=== PATIENT | female | born 1955 | race Caucasian/White ===

== ENCOUNTER → 2018-05-23 | Outpatient (CLI) | payer BC ==
[2018-05-23] MEDS: REGADENOSON 0.4 MG/5 ML DISP.SYRIN. IV (11:00)
== END | disposition home or self-care (01) ==
LOC: NM 08:48
DX: R07.9 Chest pain, unspecified (principal); E78.5 Hyperlipidemia, unspecified; E78.00 Pure hypercholesterolemia, unspecified; J44.9 Chronic obstructive pulmonary disease, unspecified; E11.9 Type 2 diabetes mellitus without complications; I10 Essential (primary) hypertension; Z90.710 Acquired absence of both cervix and uterus
CPT/HCPCS: 78452; 93017; 96374; 96375; 96376; A9500; J2785

== ENCOUNTER → 2018-06-11 | Outpatient (CLI) | payer BC ==
[2014-10-28 10:18] VITALS: BP 129/78
[~2018-06-11] MED LIST: CEPH500C PO; FLUO20CA8 PO; GABA-586 PO; HYDR-971 PO; SIMV10TA3 PO; SITA1TAB11 PO; TIZA4TAB PO
--- NOTE | 2018-06-12 10:06 | RAD ---
DATE: 06/11/2018 EXAM: DIGITAL SCREEN BILAT W/CAD HISTORY: Routine screening COMPARISON: 04/28/2014 This study was interpreted with the benefit of Computerized Aided Detection (CAD). The breast parenchyma is heterogeneously dense, which could reduce sensitivity of mammography. Breast parenchyma level C. FINDINGS: No new or enlarging breast densities are seen. Benign type calcifications are present. No suspicious microcalcifications have developed. IMPRESSION: There is no mammographic evidence of malignancy in either breast. BI-RADS CATEGORY: 2 BENIGN FINDING(S) RECOMMENDED FOLLOW-UP: 12M 12 MONTH FOLLOW-UP PQRS compliance statement: Patient information was entered into a reminder system with a target due date for the next mammogram. Mammography is a sensitive method for finding small breast cancers, but it does not detect them all and is not a substitute for careful clinical examination. A negative mammogram does not negate a clinically suspicious finding and should not result in delay in biopsying a clinically suspicious abnormality. "Our facility is accredited by the [employer] Mammography Program."
== END | disposition home or self-care (01) ==
LOC: MAMMO 15:09
PROVIDERS: ATTEND Family Medicine
DX: Z12.31 Encounter for screening mammogram for malignant neoplasm of breast (principal)
CPT/HCPCS: 77067

== ENCOUNTER → 2018-09-12 | Outpatient (CLI) | payer BC ==
[2014-10-28 10:18] VITALS: BP 129/78
[~2018-09-12] MED LIST changes: +HYDR-3164 PO; -HYDR-971 PO
--- NOTE | 2018-09-12 13:34 | RAD ---
EXAM: NUCLEAR GASTRIC EMPTYING SCAN. HISTORY: Nausea, gastroesophageal reflux disease. COMPARISON: None. TECHNIQUE: Scintigraphic images were obtained over the stomach following oral administration of 2.2 mCi of 99m-Tc sulfur colloid in an egg based meal. FINDINGS: The stomach appears normal in contour. There is clearance of activity into the small bowel. The remaining fraction of gastric activity is as follows. 1 hour 71% (normal range 34.8-91%) 2 hour 36% (normal range 2.7-60%) 3 hour 16% (normal range 0.5-28%) 4 hour 8% (normal range 0-10%) IMPRESSION: 1. Normal gastric emptying. Electronically signed by: Julianna Cross MD (09/12/2018 1:31 PM) [id number]
== END | disposition home or self-care (01) ==
LOC: NM 07:50
PROVIDERS: ATTEND Internal Medicine Gastroenterology
DX: R11.0 Nausea (principal); R12 Heartburn; K21.9 Gastro-esophageal reflux disease without esophagitis
CPT/HCPCS: 78264; A9541

== ENCOUNTER → 2018-10-30 | Outpatient (CLI) | payer BC ==
[2014-10-28 10:18] VITALS: BP 129/78
[~2018-10-30] MED LIST changes: -GABA-586 PO; +GABA300C18 PO; +SINCALIDE 1.36 MCG in IV NORMAL SALINE 50ML 30 ML IV ONE
--- NOTE | 2018-10-30 13:55 | RAD ---
EXAM: Abdomen sonogram. HISTORY: Pain. TECHNIQUE: Sonographic imaging of the abdomen was performed. COMPARISON: None. FINDINGS: The liver is normal in size. No focal hepatic lesion is seen. The gallbladder is unremarkable. The common bile duct is normal in caliber. The right kidney is normal in size. No solid or cystic renal lesion is seen. There is no hydronephrosis. The inferior vena cava is patent. The aorta is not assessed. The pancreas is unremarkable. IMPRESSION: Unremarkable abdomen sonogram. Electronically signed by: Daniella Lima MD (10/30/2018 1:51 PM) [place] [id number]
--- NOTE | 2018-11-05 15:00 | RAD ---
Radionuclide hepatobiliary scan with gallbladder ejection fraction, 10/30/2018: History: Left-sided pain This study is just now being presented for review. Following IV injection of 5.5 mCi of technetium 99 M Choletec there was prompt uptake of the radionuclide by the liver and prompt appearance of activity in the gallbladder and bile ducts. At 20 minutes activity has extended into the small bowel. Additional imaging of the gallbladder was performed following IV injection of 1.36 mcg of cholecystokinin. The gallbladder ejection fraction was calculated at 94%. IMPRESSION: 1. No evidence of cystic duct or common bile duct obstruction. 2. The gallbladder ejection fraction was 94%.
== END | disposition home or self-care (01) ==
LOC: US 07:09
PROVIDERS: ATTEND Internal Medicine Gastroenterology
DX: R10.13 Epigastric pain (principal); R11.0 Nausea; J44.9 Chronic obstructive pulmonary disease, unspecified; F17.210 Nicotine dependence, cigarettes, uncomplicated
CPT/HCPCS: 76705; 78227; A9537; J2805

== ENCOUNTER → 2019-08-12 | Outpatient (CLI) | payer BC ==
[2014-10-28 10:18] VITALS: BP 129/78
[~2019-08-12] MED LIST changes: -SINCALIDE 1.36 MCG in IV NORMAL SALINE 50ML 30 ML IV ONE; -TIZA4TAB PO; +TIZA4TAB2 PO
--- NOTE | 2019-08-13 19:05 | RAD ---
DATE: 07/29/2019 EXAM: MAMMO ZAKIA SCREENING BILATERAL HISTORY: Right-sided breast biopsy in 1989 which was benign. Routine screening. COMPARISON: 06/11/2018, 08/29/2014 mammographic exams This study was interpreted with the benefit of Computerized Aided Detection (CAD). Breast Density: SCATTERED The breast parenchyma shows scattered fibroglandular densities. Breast parenchyma level B. FINDINGS: Right upper-outer breast mass is stable. No suspicious calcification. No distortions in the interval. No new left breast mass IMPRESSION: Stable BI-RADS CATEGORY: 2 BENIGN FINDING(S) RECOMMENDED FOLLOW-UP: 12M 12 MONTH FOLLOW-UP PQRS compliance statement: Patient information was entered into a reminder system with a target due date for the next mammogram. Mammography is a sensitive method for finding small breast cancers, but it does not detect them all and is not a substitute for careful clinical examination. A negative mammogram does not negate a clinically suspicious finding and should not result in delay in biopsying a clinically suspicious abnormality. "Our facility is accredited by the [employer] Mammography Program."
== END | disposition home or self-care (01) ==
LOC: MAMMO 14:53
PROVIDERS: ATTEND Family Medicine
DX: Z12.31 Encounter for screening mammogram for malignant neoplasm of breast (principal); N63.11 Unspecified lump in the right breast, upper outer quadrant
CPT/HCPCS: 77063; 77067

== ENCOUNTER → 2021-04-28 | Outpatient (CLI) | payer BC ==
[2014-10-28 10:18] VITALS: BP 129/78
[~2021-04-28] MED LIST changes: +FLUO20CA20 PO; -FLUO20CA8 PO; +SIMV10TA15 PO; -SIMV10TA3 PO
--- NOTE | 2021-04-28 15:42 | RAD ---
MG BILAT SCREEN+ZAKIA 04/28/2021 8:27 AM INDICATION: Asymptomatic screening mammogram. COMPARISON: 08/12/2019, 06/11/2018 TECHNIQUE: 3D tomosynthesis was performed in CC and MLO projections. 2D views were obtained from the 3D data. CAD was utilized as needed. FINDINGS: Breast density: Category B: There are scattered areas of fibroglandular density. Right breast: There are no suspicious microcalcifications, masses or areas of architectural distortio n. Left breast: There are no suspicious microcalcifications, masses or areas of architectural distortion . Bilateral mammogram is compared to prior examinations appears unchanged. IMPRESSION: Negative bilateral mammogram. BI-RADS category: 1; Negative Recommendations: Recommend annual screening mammography in one year. Electronically signed by: Vidya Mancini MD (04/28/2021 3:39 PM) [id number]
== END ==
LOC: MAMMO 08:24
PROVIDERS: ATTEND Family Medicine
DX: Z12.31 Encounter for screening mammogram for malignant neoplasm of breast (principal)
CPT/HCPCS: 77063; 77067